=== PATIENT | male | born 1965 | race Caucasian/White ===

== ENCOUNTER 2016-09-28 11:18 | Emergency (ER) | payer SELFPAY | END 2016-09-28 12:51 | disposition home or self-care (01) | LOC: ER 11:18 | DX: M25.512 Pain in left shoulder (principal); I10 Essential (primary) hypertension; W23.0XXA Caught, crushed, jammed, or pinched between moving objects, initial encounter | CPT/HCPCS: 73030-RT; 99283; A9270-GY; J1885 ==